=== PATIENT | male | born 1970 | race Caucasian/White ===

== ENCOUNTER 2022-09-08 23:32 | Emergency (ER) | payer SELFPAY ==
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
[2022-09-08 23:38] VITALS: BP 146/92; PULSE 85; RESP 18; TEMP 37.4; O2SAT 92; BMI 28.6
[2022-09-09] MEDS: Acetaminophen 325 MG TABLET 975 MG PO (01:16)
[2022-09-09] MEDS: Lidocaine HCl 1%/Epi 1:100,000 10 ML VIAL INFILTRATI (01:16)
[2022-09-09] MEDS: Diphth,Pertus(ACell),Tet Adult 0.5 ML SYRINGE IM (01:17)
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
[2022-09-09 03:54] VITALS: BP 129/86; PULSE 66; RESP 16; O2SAT 93
== END 2022-09-09 03:56 | disposition home or self-care (01) ==
PROVIDERS: Emergency Provider Emergency Medicine
DX: S01.01XA Laceration without foreign body of scalp, initial encounter (principal); S00.83XA Contusion of other part of head, initial encounter; Y00.XXXA Assault by blunt object, initial encounter; F19.10 Other psychoactive substance abuse, uncomplicated; R68.84 Jaw pain; Y93.9 Activity, unspecified; Y92.9 Unspecified place or not applicable; Y99.9 Unspecified external cause status
CPT/HCPCS: 70450; 70486; 72125; 90471; 90715; 99284